=== PATIENT | male | born 1965 | race Two or more races ===

== ENCOUNTER 2019-03-08 12:49 | Observation (INO) | payer OTHER, SELFPAY ==
[~2019-03-08] VITALS: Ht 167.6 cm; Wt 77.2 kg
[2019-03-08] MEDS ORDERED: ASPIRIN 81 MG TABLET CHEW ONE (13:07)
--- NOTE | 2019-03-08 13:19 | NUR ---
Pt c/o sharp L sided CP radiating up into L jaw 6 x1.5 hours. 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 Pt states he is feeling less stressed but is still having the pain. Pt speaking in full sentences, resp even and unlabored, NADN. Pt placed in gown, positioned for comfort in bed. Continuous heart, oxygen and BP monitors applied, all safety measures observed.
[2019-03-08 13:24] LABS: BASOPHILS # (AUTO) 0.02 x10^3/uL (0-0.1); BASOPHILS % (AUTO) 0 % (0-1); EOSINOPHILS # (AUTO) 0.03 x10^3/uL (0-0.4); EOSINOPHILS % (AUTO) 0 % (1-7); LYMPHOCYTES # (AUTO) 1.39 x10^3/uL (1-3.4); LYMPHOCYTES % (AUTO) 23 % (22-44); MD NO; MEAN CORPUSCULAR HEMOGLOBIN 31.6 pg (27.5-34.5); MEAN CORPUSCULAR HGB CONC 33.3 g/dL (33.2-36.2); MEAN CORPUSCULAR VOLUME 94.9 fL (81-97); MEAN PLATELET VOLUME 8.2 fL (7.4-10.4); MONOCYTES # (AUTO) 0.35 x10^3/uL (0.2-0.8); MONOCYTES % (AUTO) 6 % (2-9); NEUTROPHILS # (AUTO) 4.19 x10^3/uL (1.8-6.8); NEUTROPHILS % (AUTO) 70 % (42-75); PLATELET COUNT 217 x10^3/uL (130-400); RED CELL DISTRIBUTION WIDTH 12.8 % (9.4-14.8)
[2019-03-08] MEDS ORDERED: ASPIRIN 81 MG TABLET CHEW PO ONE (13:30)
[2019-03-08] MEDS ORDERED: NITROGLYCERIN SINGLE TAB 0.4 MG SL ONE ×2 (13:30→13:32)
[2019-03-08 13:34] LABS: ANION GAP 10 mmol/L (5-15); CALCIUM 8.6 mg/dL (8.5-10.1); CHLORIDE 105 mmol/L (98-107); CREATININE 1.06 mg/dL (0.7-1.3)
--- NOTE | 2019-03-08 13:35 | NUR ---
PT STATES PAIN IS 6/10. NTG GIVEN. REPEAT EKG COMPETED PER MD ORDERS
[2019-03-08 13:38] LABS: TROPONIN I < 0.015 ng/mL (0.000-0.045)
--- NOTE | 2019-03-08 13:41 | NUR ---
PT STATES 5 CP, REPEAT EKG ORDERED TO DR. FLOWERS
--- NOTE | 2019-03-08 13:52 | NUR ---
REPEAT NTG PER MD. PT STATES PAIN IS BETTER
[2019-03-08] MEDS ORDERED: NITROGLYCERIN OINT 2%, 1GM TP ONE ×2 (13:55→14:00)
[2019-03-08] MEDS ORDERED: SODIUM CHLORIDE FLUSH 10ML SYR IVF ONE (14:00)
--- NOTE | 2019-03-08 14:21 | NUR ---
PT RESTING, VERBALIZED PAIN IS 3/10 AT THIS TIME. [employer] ON IN SINUS, SP02 AT 98% AND CYCLE VS. DISCUSSED ADMIT, PT VERBALIZED UNDERSTANDING.
[2019-03-08] MEDS ORDERED: ONDANSETRON ODT 4 MG PO PRN (15:30)
[2019-03-08] MEDS ORDERED: ONDANSETRON 2MG/ML, 2ML IVPush PRN (15:30)
[2019-03-08] MEDS ORDERED: ENOXAPARIN 40 MG/0.4 ML SQ SCH (15:30)
[2019-03-08 16:00] LABS: TROPONIN I < 0.015 ng/mL (0.000-0.045)
[2019-03-08 16:34] LABS: HEMOGLOBIN A1C 6.2 % (4.2-6.3)
[2019-03-08 20:05] VITALS: BP 122/64
[2019-03-08 21:53] LABS: TROPONIN I < 0.015 ng/mL (0.000-0.045)
[2019-03-09 02:02] VITALS: BP 119/69
[2019-03-09 05:38] LABS: BASOPHILS # (AUTO) 0.04 x10^3/uL (0-0.1); BASOPHILS % (AUTO) 0 % (0-1); EOSINOPHILS # (AUTO) 0.02 x10^3/uL (0-0.4); EOSINOPHILS % (AUTO) 0 % (1-7); LYMPHOCYTES # (AUTO) 2.44 x10^3/uL (1-3.4); LYMPHOCYTES % (AUTO) 26 % (22-44); MD NO; MEAN CORPUSCULAR HEMOGLOBIN 32.1 pg (27.5-34.5); MEAN CORPUSCULAR HGB CONC 33.7 g/dL (33.2-36.2); MEAN CORPUSCULAR VOLUME 95.3 fL (81-97); MEAN PLATELET VOLUME 8.2 fL (7.4-10.4); MONOCYTES % (AUTO) 5 % (2-9); NEUTROPHILS # (AUTO) 6.41 x10^3/uL (1.8-6.8); NEUTROPHILS % (AUTO) 68 % (42-75); PLATELET COUNT 212 x10^3/uL (130-400); RED BLOOD COUNT 5.31 x10^6/uL (4.38-5.82); RED CELL DISTRIBUTION WIDTH 12.8 % (9.4-14.8)
[2019-03-09 05:45] LABS: CHLORIDE 109 mmol/L (98-107)
[2019-03-09 06:00] LABS: ANION GAP 7 mmol/L (5-15); CALCIUM 8.7 mg/dL (8.5-10.1); CHOL/HDL RATIO 4.7; CHOLESTEROL, TOTAL 184 mg/dL (140-239); CREATININE 0.91 mg/dL (0.7-1.3); HDL CHOL % 21 % (26-37); HDL CHOLESTEROL (DIRECT) 39 mg/dL (40-60); LDL CHOLESTEROL,CALCULATED 103 mg/dL (54-169); LDL/HDL RATIO 2.6 (0.5-3.0); TRIGLYCERIDES 209 mg/dL (50-200); VLDL CHOLESTEROL 42 mg/dL (0-25)
[2019-03-09] MEDS ORDERED: ASPIRIN 325 MG TABLET PO SCH (06:00)
[2019-03-09] MEDS ORDERED: ASPIRIN 81 MG TABLET CHEW PO SCH (07:00)
[2019-03-09 07:24] VITALS: BP 164/84
== END 2019-03-09 14:20 | disposition home or self-care (01) ==
LOC: ED 14:10 → EDIP 14:22 → UNDOADMOB 14:22 → INTOOBSV 14:22 → 5SO 16:00 → EDIP 16:00 → 5SO 03-09 11:54 → DCLOUNGE 03-09 14:10
PROVIDERS: ADMIT Internal Medicine; ATTEND Internal Medicine
DX: I20.0 Unstable angina (principal); E11.65 Type 2 diabetes mellitus with hyperglycemia
CPT/HCPCS: 0399T; 36415; 71045; 80048; 80061; 82040; 83036; 84443; 84484; 85025; 93005; 93017; 93306; 96372; 99284; G0378; J1650